=== PATIENT | female | born 1985 | race Caucasian/White ===

== ENCOUNTER 2021-01-11 23:52 | Emergency (ER) | payer OTHER ==
[2021-01-12 01:59] LABS: BUN/CREAT RATIO (CALC) 15.5 RATIO; CREATININE 0.71 mg/dL (0.51-0.95); POTASSIUM 3.4 mmol/L (3.5-5.1)
[2021-01-12] MEDS ORDERED: DIFLUCAN150 MG PO ×2 (04:09→04:10)
[2021-01-12] MEDS ORDERED: CLEOCIN300 MG PO (04:09)
[2021-01-12] MEDS ORDERED: ZOFRAN4 M1 PO (04:09)
== END 2021-01-12 05:34 | disposition home or self-care (01) ==
LOC: FER 23:52
PROVIDERS: Emergency Medicine
DX: K04.7 Periapical abscess without sinus (principal)
CPT/HCPCS: 36415; 70487; 80048; J7030; Q0163; Q9967